=== PATIENT | female | born 1990 | race Caucasian/White ===

== ENCOUNTER 2022-01-11 11:29 | Emergency (ER) | payer OTHER ==
[~2022-01-11] VITALS: Ht 167.6 cm; Wt 81.7 kg
== END 2022-01-11 14:33 | disposition home or self-care (01) ==
LOC: ER 11:29
DX: M25.561 Pain in right knee (principal)
CPT/HCPCS: 73562-RT; A9270

== ENCOUNTER 2022-02-22 06:25 | Day surgery (SDC) | payer OTHER ==
[~2022-02-22] VITALS: Ht 167.6 cm; Wt 82.0 kg
[2022-02-22] MEDS ORDERED: CODACE30 (06:57)
--- NOTE | 2022-02-22 08:19 | NUR ---
02/22/22 0819 KATHRINE LEE 0.05MG OF EPI (1MG/1ML) ADDED TO 10MLS OF ROPIVACAINE 0.5% TO CREATE A LOCAL SOLUTION OF ROPIVACAINE 0.5% WITH EPI 1:200,000. LOCAL POURED ONTO STERILE FIELD FOR USE DURING CASE. 1MG OF EPI ADDED TO BAG OF LR TO USE FOR IRRIGATION.
--- NOTE | 2022-02-22 11:22 | NUR ---
02/22/22 1122 LEWIS ANGULO PT NOW CRYING- IN PAIN AND UNCOMFORTABLE SHE STATES. MOM IS AT BEDSIDE.
== END 2022-02-22 12:30 | disposition home or self-care (01) ==
LOC: ORSCSDS 06:25
PROVIDERS: Orthopaedic Surgery
PROC: 0MRN47Z Replacement of Right Knee Bursa and Ligament with Autologous Tissue Substitute, Percutaneous Endoscopic Approach (ICD-10-PCS; principal; 2022-02-22 07:30)
PROC: 0SQC4ZZ Repair Right Knee Joint, Percutaneous Endoscopic Approach (ICD-10-PCS; principal; 2022-02-22 07:30)
DX: S83.511A Sprain of anterior cruciate ligament of right knee, initial encounter (principal); S83.241A Other tear of medial meniscus, current injury, right knee, initial encounter; M65.9 Synovitis and tenosynovitis, unspecified; F17.210 Nicotine dependence, cigarettes, uncomplicated
CPT/HCPCS: A9270; C1713; J0171; J0690; J1100; J1885; J2250; J2270; J2405; J2704; J2795; J3010; J7120

== ENCOUNTER 2023-02-11 10:03 | Emergency (ER) | payer OTHER ==
[2023-02-11] VITALS (11 sets, daily range): BP systolic 128–148; BP diastolic 82–102
[~2023-02-11] VITALS: Ht 167.6 cm; Wt 90.7 kg
[~2023-02-11 10:03] MED LIST: CODACE30
[2023-02-11 10:41] LABS: BASOPHILS ABSOLUTE AUTO 0.01 K/mm3 (0.00-0.23); BASOPHILS PERCENT AUTO 0 % (0-2); EOSINOPHILS ABSOLUTE AUTO 0.25 K/mm3 (0.00-0.68); EOSINOPHILS PERCENT AUTO 4 % (0-6); Hemoglobin 14.3 g/dL (11.5-16.0); IMMATURE GRAN ABSOLUTE AUTO 0.03 K/mm3 (0.00-0.10); IMMATURE GRAN PERCENT AUTO 0 % (0-1); LYMPHOCYTES PERCENT AUTO 35 % (21-46); MONOCYTES ABSOLUTE AUTO 0.39 K/mm3 (0.16-1.47); MONOCYTES PERCENT AUTO 6 % (4-13); Mean Corpuscular HGB 29.7 pg (26.0-34.0); Mean Corpuscular Volume 87 fL (80-100); NEUTROPHILS ABSOLUTE AUTO 3.97 K/mm3 (1.96-9.15); NEUTROPHILS PERCENT AUTO 56 % (41-73); Platelet Count 296 K/mm3 (150-400); RDW Coefficient Variation 13.8 % (11.7-14.2); RDW Standard Deviation 44.5 fL (35.1-46.3); Red Blood Cell Count 4.82 M/mm3 (3.80-5.20); White Blood Cell Count 7.15 K/mm3 (4.00-11.30)
[2023-02-11 11:07] LABS: Albumin, Blood 4.3 g/dL (3.4-5.0); Albumin/Globulin Ratio 1.2 (0.8-1.8); Bilirubin, Total 0.3 mg/dL (0.1-1.0); Bun/Creatinine Ratio 20.3 (12.0-20.0); Calcium, Blood 8.7 mg/dL (8.5-10.1); Creatinine, Blood 0.79 mg/dL (0.40-1.00); Globulin, Blood 3.6 g/dL (2.2-4.0); Total Protein, Blood 7.9 g/dL (6.4-8.2)
[2023-02-11 11:44] LABS: Source, Urine Clean Catch
[2023-02-11 11:46] LABS: Appearance, Urine Clear (Clear); Bilirubin, Urine Neg (Neg); Blood, Urine Neg (Neg); Color, Urine Yellow (P-Yellow); Glucose Qualitative, Urine Neg (Neg); Ketones, Urine Neg (Neg); Leukocyte Esterase, Urine 1+ (Neg); Nitrite, Urine Neg (Neg); Protein, Urine Neg (Neg); Urobilinogen, Urine NORM (Normal)
[2023-02-11 11:57] LABS: Mucus Light (0-Heavy)
[2023-02-11 11:59] LABS: Red Blood Cells, Urine Not Seen /hpf (0-2); Squamous Epithelial Cells Few /hpf (Few)
[2023-02-11 12:00] LABS: Amorphous Light (0-Heavy); Bacteria Rare /hpf
[2023-02-11] MEDS ORDERED: MONDOXYNE NL100 MG PO (13:15)
[2023-02-11] MEDS ORDERED: SULFAMETHOXAZO1 EAC1 UD (13:15)
[2023-02-11] MEDS ORDERED: METR500 PO (13:15)
--- NOTE | 2023-02-11 13:59 | NUR ---
History, Chart, Medications and Allergies reviewed before start of procedure. Patient confirms NPO status and agrees with scheduled surgery. Pre-Op teaching done. Pt verbalizes understanding. Surgical site prepped with 2% Chlorhexidine cloth wipe. Lungs clear T/O to Auscultation.
--- NOTE | 2023-02-11 16:52 | NUR ---
REPORT RECIEVED. PT SITTING UP IN BED TOLERATING PO FLUIDS. FAMILY AT BEDSIDE. VSS ON ROOM AIR. DENIES PAIN
--- NOTE | 2023-02-11 17:30 | NUR ---
PT C/O PAIN 10/18. ORDERS FOR PAIN MEDICATION REVIEWED AT THIS TIME. PT EATING PUDDING AND DRINKING WATER. FAMILY AT BEDSIDE Discharge instructions reviewed with patient. AND FAMILY Patient verbalizes understanding. Copy given to patient to take home.
--- NOTE | 2023-02-11 17:34 | NUR ---
Patient up to Ambulate independently. Gait steady. Discharged via wheelchair to private car for ride home. ICE PACK PROVIDED. DEVIN PADS PROVIDED. SCRIPT AND D/C INFO IN HAND. PT REPORTS RELIEF FROM PAIN. LIGHT VAGINAL BLEEDING NOTED. ABDOMINAL SITES C/D/I
== END 2023-02-11 13:07 | disposition home or self-care (01) ==
LOC: ER 10:03
PROVIDERS: Emergency Medicine
DX: N70.11 Chronic salpingitis (principal); N80.9 Endometriosis, unspecified
CPT/HCPCS: 76830; 76856; 80053; 81001; 84703; 85025; 86850; 86900; 86901; 88305; 96374-59; 96375-59; 99285-25; A9270; J1100; J1885; J2250; J2270; J2405; J2704; J3010; J7120